=== PATIENT | male | born 1940 | race Caucasian/White ===

== ENCOUNTER 2017-08-16 17:30 | Outpatient (CLI) | payer MEDICARE, OTHER | END 2017-08-16 17:31 | disposition EMS.NT | LOC: EMS 17:30 | PROVIDERS: ATTEND Surgery | DX: R55 Syncope and collapse (principal) ==

== ENCOUNTER 2017-10-09 08:32 | Outpatient (CLI) | payer MEDICARE, OTHER ==
[2017-10-09] MEDS: FUROSEMIDE 40 MG/4 ML VIAL IVP SCH (09:20)
--- NOTE | 2017-10-10 11:00 | Nuclear Medicine Report ---
EXAM: RENOGRAM WITH LASIX EXAM DATE: 10/09/2017 01:57 PM. CLINICAL HISTORY: HYDRONEPHROSIS. COMPARISON: 07/04/2015 CT. TECHNIQUE: Adequate hydration status was ensured. Patient received the intravenous administration of 4.8 mCi Tc-99m MAG3. Immediate renal blood flow images were acquired for 2 minutes. Approximately 10 minutes into the study, the patient received an intravenous administration of 40 mg Lasix. Renal kady stefan images were acquired from the posterior projection for approximately 30 minutes. Postvoid images were acquired as well. FINDINGS: Renal Vascular Flow: Normal left renal flow. There is diminished flow to the right kidney. Renal Parenchymal Function: Time to peak left renal activity 9.5 minutes and right kidney 31.3 minute s. Drainage: Prompt post-Lasix left renal washout. There is increasing post-Lasix right renal collecting system activity. Postvoid Images: Residual left renal parenchymal and collecting system activity. Dilated right renal collecting system with persistent activity. Differential Function: Left Kidney = 76% Right Kidney = 24% IMPRESSION: 1. Obstructed right kidney demonstrating decreased function. 2. Split renal function left kidney 76% and right kidney 24%. [facility] Referring Provider Line: [phone] SITE ID: [id number]
== END 2017-10-09 08:33 | disposition home or self-care (01) ==
LOC: DI 08:32
PROVIDERS: ATTEND Urology
DX: N28.89 Other specified disorders of kidney and ureter (principal)
CPT/HCPCS: 78708; A9562

== ENCOUNTER 2018-01-10 08:42 | Outpatient (CLI) | payer MEDICARE, OTHER ==
[2018-01-10] MEDS: FUROSEMIDE 40 MG/4 ML VIAL IVP ONE (09:25)
--- NOTE | 2018-01-10 12:28 | Nuclear Medicine Report ---
EXAM: RENOGRAM WITH LASIX EXAM DATE: 01/10/2018 11:56 AM. CLINICAL HISTORY: Hydronephrosis, bladder Stone, ureteral Stone, gross. COMPARISON: 10/09/2017. TECHNIQUE: Adequate hydration status was ensured. Patient received the intravenous administration of 5.5 mCi Tc-99m MAG3. Immediate renal blood flow images were acquired for 2 minutes. Approximately 10 minutes into the study, the patient received an intravenous administration of 40 mg Lasix. Renal kady stefan images were acquired from the posterior projection for approximately 30 minutes. Postvoid images were acquired as well. FINDINGS: Renal Vascular Flow: There is poor vascular flow to the right kidney. Renal Parenchymal Function: There is essentially no function of the right kidney. Drainage: There is slow drainage of the left kidney initially. Post Lasix drainage half-time is appro ximately 8 minutes. Postvoid Images: There is very little if any activity in the right kidney. Mild retention of activity in the left renal collecting system. Differential Function: Left Kidney = 100% Right Kidney = 0% IMPRESSION: 1. Essentially nonfunctioning right kidney. 2. Dilated left renal collecting system without obstruction. [facility] Referring Provider Line: [phone] SITE ID: [id number]
== END 2018-01-10 08:43 | disposition home or self-care (01) ==
LOC: DI 08:42
PROVIDERS: ATTEND Urology
DX: N13.30 Unspecified hydronephrosis (principal); N21.0 Calculus in bladder; N20.1 Calculus of ureter; N32.0 Bladder-neck obstruction; Z87.442 Personal history of urinary calculi; R31.0 Gross hematuria; N28.9 Disorder of kidney and ureter, unspecified
CPT/HCPCS: 78708; A9562

== ENCOUNTER 2019-10-03 10:52 | Day surgery (SDC) | payer MEDICARE, OTHER ==
--- NOTE | 2019-10-03 12:13 | ANESTHESIA PROCEDURE NOTE ---
Diagnosis: vermin exterminator abx Procedure: Mid line placement Height and Weight: Height 6 ft Body Mass Index 28.8 Allergies Sulfa (Sulfonamide Antibiotics) Allergy (Verified 09/24/15 19:18) Unknown Iodinated Contrast Media [Iodinated Contrast Media - IV Dye] Adverse Reaction (Unverified 07/04/15 09:56) Hives Pt states of having reaction 5 years ago during angiogram procedure in [facility]. Having hives and severe itching occurred. ASA classification: 3-Severe systemic disease Is this case an emergency?: No Anesth Central Line Template - Central Line Central Line Preparation: Consent Obtained Central line type: Other (double lumen picc) Central line catheter tip site resides: picc tip in subclavian vein Central line aftercare: Secured, Placement confirmed, No pneumothorax, No complications, Bundle checklist complete, Pt tolerated well, Other (we will wait for rediographic confirmation. picc catheter was cut beyond the "no trim zone" area. 30 cm in and zero cm at skin)
--- NOTE | 2019-10-03 12:21 | PROCEDURE REPORT ---
Hospitalist Procedure Note - Procedure Note Procedure Note: this patient has an order for a midline placement. This is an outpatient requiring antibiotics. We placed a mid line using US guidance. Picc line catheter was cut beyond "no trim zone" which is at 30 cm. US guidance used for insertion. Skin cleaned with chlorohexidine and sterile prep and draping used. Patient laid supine. Lidocain for skin LA used. 5 turkish double lumen high pressure catheter used. 30 cm in and zero cm exposed. Secured with stat lock and a tegaderm. Luer lock caps attached. Both lumen flushed and aspirated blood with ease. Patient tolerated the procedure well. We confirmed the placement with a portable chest x ray, but we will still look forward to radiology confirmation.
--- NOTE | 2019-10-03 12:33 | XRAY Report ---
Reason: new PICC @R basilic v. Procedure Date: 10/03/2019 Accession Number: [id number] / [id number] Procedure: XR - Chest for Line Placement CPT Code: Final Report FULL RESULT: EXAM: CHEST RADIOGRAPHY EXAM DATE: 10/03/2019 12:10 PM. CLINICAL HISTORY: New PICC at right basilic vein. COMPARISON: None. TECHNIQUE: 1 view. FINDINGS: Lungs/Pleura: No focal opacities evident. No pleural effusion. No pneumothorax. Mediastinum: Within exam limitations, the cardiomediastinal contour is normal. Other: Right arm PICC terminates with tip at confluence of subclavian and IJ veins. IMPRESSION: Tip of central venous catheter as described. This positioning is likely acceptable for non-caustic medications such as antibiotics. Recommendation: Position of catheter tip is functionally similar to a midline but formally in a central vein. For TPN or chemotherapy, would reposition more centrally. [facility]
== END 2019-10-03 10:53 | disposition home or self-care (01) ==
LOC: SDS 10:52
PROVIDERS: ATTEND Nurse Anesthetist, Certified Registered
PROC: 05H533Z Insertion of Infusion Device into Right Subclavian Vein, Percutaneous Approach (ICD-10-PCS; 2019-10-03)
PROC: 0JHD3WZ Insertion of Totally Implantable Vascular Access Device into Right Upper Arm Subcutaneous Tissue and Fascia, Percutaneous Approach (ICD-10-PCS; principal; 2019-10-03 11:30)
DX: N39.0 Urinary tract infection, site not specified (principal)
CPT/HCPCS: 36569; C1751; 71045

== ENCOUNTER 2020-08-07 15:37 | Emergency (ER) | payer MEDICARE, OTHER ==
--- NOTE | 2020-08-07 16:17 | ED Physician Documentation ---
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 He gets occasional issues with urinary obstruction and on rare occasions self caths at home with a coud. Last time he had to do that was exactly 100 days ago. He has not been able to urinate since this morning and has severe suprapubic pain and pain in the left flank which is where his residual kidney is. Review of Systems Ten Systems: 10 systems reviewed and negative Constitutional: denies: Fever, Chills Cardiac: reports: Reviewed and negative Respiratory: reports: Reviewed and negative PD PAST MEDICAL HISTORY - Past Medical History Cardiovascular: Atrial fibrillation Respiratory: None, Other Endocrine/Autoimmune: None GI: None : Frequency, Kidney stones HEENT: Macular degeneration Psych: None Musculoskeletal: None Derm: None - Past Surgical History Past Surgical History: Yes HEENT: Tonsil/Adenoidectomy Derm: Skin cancer surgery - Present Medications Home Medications: Ambulatory Orders Medication Instructions Recorded Confirmed Allopurinol [Zyloprim] 300 mg PO DAILY 08/07/20 08/07/20 dilTIAZem HCL [Diltiazem 24Hr ER 240 mg PO DAILY 08/07/20 08/07/20 (Xr)] - Allergies Allergies/Adverse Reactions: Allergies Allergy/AdvReac Type Severity Reaction Status Date / Time Sulfa (Sulfonamide Allergy Unknown Verified 08/07/20 15:56 Antibiotics) Iodinated Contrast Media AdvReac Hives Verified 08/07/20 15:56 [Iodinated Contrast Media - IV Dye] - Social History Does the pt smoke?: Yes Smoking Status: Former smoker Does the pt drink ETOH?: Yes Does the pt have substance abuse?: No - Immunizations Immunizations are current?: Yes - POLST Patient has POLST: No PD ED PE NORMAL - Vitals Vital signs reviewed: Yes - General General: Alert and oriented X 3, Other (He appears uncomfortable) - Abdomen Abdomen: Other (Firm distended bladder with some tenderness) - Back Back: No CVA TTP, No spinal TTP - Derm Derm: Normal color, Warm and dry - Extremities Extremities: No edema, No calf tenderness / cord - Neuro Neuro: Alert and oriented X 3, Normal speech Results - Vitals Vitals: Vital Signs - 24 hr 08/07/20 08/07/20 08/07/20 15:52 17:58 19:31 Temperature 37.1 C 36.9 C 36.7 C Heart Rate 96 84 79 Respiratory 16 18 16 Rate Blood Pressure 139/95 H 144/81 H 122/65 O2 Saturation 97 85 L 96 08/07/20 08/07/20 20:29 21:38 Temperature 37.0 C 37.1 C Heart Rate 75 78 Respiratory 16 18 Rate Blood Pressure 134/82 H 142/80 H O2 Saturation 96 96 Oxygen O2 Source Room air - Labs Labs: Laboratory Tests 08/07/20 08/07/20 08/07/20 16:45 16:52 17:02 WBC 16.4 H RBC 4.42 L Hgb 13.2 L Hct 40.2 L MCV 91.0 MCH 29.9 MCHC 32.8 RDW 16.1 H Plt Count 339 MPV 10.0 Neut # (Auto) 14.7 H Lymph # (Auto) 0.7 L [place] # (Auto) 0.8 Eos # (Auto) 0.0 Baso # (Auto) 0.1 Absolute Nucleated RBC 0.00 Nucleated RBC % 0.0 Sodium 139 Potassium 4.6 Chloride 100 L Carbon Dioxide 22 Anion Gap 17.0 H BUN 42 H Creatinine 2.5 H Estimated GFR (MDRD) 25 L Glucose 115 H Lactic Acid Calcium 9.4 Prostate Specific Ag Urine Color YELLOW Urine Clarity CLOUDY Urine pH 7.0 Ur Specific [place] 1.020 Urine Protein 100 H Urine Glucose (UA) NEGATIVE Urine Ketones NEGATIVE Urine Occult Blood LARGE H Urine Nitrite NEGATIVE Urine Bilirubin NEGATIVE Urine Urobilinogen 0.2 (NORMAL) Ur Leukocyte Esterase LARGE H Urine RBC Y Urine WBC >25 H Ur Squamous Epith Cells NONE SEEN Urine Bacteria Many H Ur Microscopic Review INDICATED Urine Culture Comments INDICATED Nasal Adenovirus (PCR) Nasal B. parapertussis DNA (PCR) Nasal Coronavir 229E PCR Nasal Coronavir HKU1 PCR Nasal Coronavir NL63 PCR Nasal Coronavir OC43 PCR Nasal Enterovir/Rhinovir PCR Nasal Influenza B PCR Nasal Influenza A PCR Nasal Parainfluen 1 PCR Nasal Parainfluen 2 PCR Nasal Parainfluen 3 PCR Nasal Parainfluen 4 PCR Nasal RSV (PCR) Nasal B.pertussis DNA PCR Nasal C.pneumoniae (PCR) Wilder Human Metapneumo PCR Nasal M.pneumoniae (PCR) Nasal SARS-CoV-2 (PCR) 08/07/20 08/07/20 08/07/20 17:02 17:52 20:35 WBC RBC Hgb Hct MCV MCH MCHC RDW Plt Count MPV Neut # (Auto) Lymph # (Auto) [place] # (Auto) Eos # (Auto) Baso # (Auto) Absolute Nucleated RBC Nucleated RBC % Sodium Potassium Chloride Carbon Dioxide Anion Gap BUN Creatinine Estimated GFR (MDRD) Glucose Lactic Acid 1.7 Calcium Prostate Specific Ag 0.069 Urine Color Urine Clarity Urine pH Ur Specific [place] Urine Protein Urine Glucose (UA) Urine Ketones Urine Occult Blood Urine Nitrite Urine Bilirubin Urine Urobilinogen Ur Leukocyte Esterase Urine RBC Urine WBC Ur Squamous Epith Cells Urine Bacteria Ur Microscopic Review Urine Culture Comments Nasal Adenovirus (PCR) NOT DETECTED Nasal B. parapertussis DNA (PCR) NOT DETECTED Nasal Coronavir 229E PCR NOT DETECTED Nasal Coronavir HKU1 PCR NOT DETECTED Nasal Coronavir NL63 PCR NOT DETECTED Nasal Coronavir OC43 PCR NOT DETECTED Nasal Enterovir/Rhinovir PCR NOT DETECTED Nasal Influenza B PCR NOT DETECTED Nasal Influenza A PCR NOT DETECTED Nasal Parainfluen 1 PCR NOT DETECTED Nasal Parainfluen 2 PCR NOT DETECTED Nasal Parainfluen 3 PCR NOT DETECTED Nasal Parainfluen 4 PCR NOT DETECTED Nasal RSV (PCR) NOT DETECTED Nasal B.pertussis DNA PCR NOT DETECTED Nasal C.pneumoniae (PCR) NOT DETECTED Wilder Human Metapneumo PCR NOT DETECTED Nasal M.pneumoniae (PCR) NOT DETECTED Nasal SARS-CoV-2 (PCR) NOT DETECTED Procedures - General procedure General procedure: I initially saw the patient at the bedside and tried to place a regular 16 Niuean Aguilar, this was unsuccessful, this was followed by a 16 [place] coud, also unsuccessful. [place] like it was getting almost to the bladder and then hitting a hard very resistance. PD MEDICAL DECISION MAKING - ED course ED course: I was unable to place a Aguilar, subsequently was reported that his bladder scan was only in the 250 mL range. That said his symptoms seemed out of proportion to that especially in light of his worsening renal function. Bedside ultrasound was done by me and suggested much more significant urinary retention and one of the more seasons nurses also tried to place a Aguilar and what is unable. Given his borderline tachycardia and white count he technically does fit criteria for urosepsis. Sepsis time of onset was 1730 based on results of urinalysis timing. Blood cultures and Rocephin were ordered. Called [facility] for transfer to [place] where he gets his urologic care at approximately 1804. I spoke with his by phone [phone] After some delays I did get a hold of Dr. Nichols, the on-call urologist with [facility]. All of the hospitals in their hospital system are quite overwhelmed right now and he requested that we give it another try with the Aguilar with a smaller coud. Initial tries were with a 16 Niuean. He recommended a 12 Niuean coud. We are looking for 1. Subsequently we found that the 16 Niuean coud is the smallest we have in the hospital. I tried catheterizing him again with both a 12 Niuean and a 10 Niuean Aguilar, there was no success. Subsequently was accepted to [facility] ED by Dr. Corey Fisher at approximately 10 PM and cobras were completed. He is stable for transport for specialty care. - Sepsis Event Current Stage of Sepsis: Sepsis Possible source of Sepsis: Genitourinary Mental/Cognitive Status: Alert/Oriented X3, Normal for patient Reason for not giving 30ml/kg crystalloid fluids: Other (not in shock) Peripheral Pulse Strength: 3+ Normal Peripheral Pulse Location: Radial Bedside ultrasound performed: No Sepsis Comment: He is just barely into septic criteria with a heart rate of 96 and leukocytosis with known source, urinary. Departure - Departure Disposition: 02 Transfer Acute Care Hosp Clinical Impression: Urinary retention, NANDO (acute kidney injury) Urinary tract infection Qualifiers: Urinary tract infection type: acute pyelonephritis Qualified Code(s): N10 - Acute pyelonephritis Sepsis Qualifiers: Sepsis type: sepsis due to unspecified organism Sepsis acute organ dysfunction status: with acute organ dysfunction Severe sepsis acute organ dysfunction type: acute renal failure Acute renal failure type: unspecified Severe sepsis shock status: without septic shock Qualified Code(s): A41.9 - Sepsis, unspecified organism Condition: Stable
[2020-08-07] MEDS ORDERED: oxyCODONE 5 MG TABLET PO STA (16:37)
[2020-08-07 17:00] LABS: BILIRUBIN,URINE NEGATIVE (NEGATIVE); GLUCOSE, URINE (UA) NEGATIVE (NEGATIVE); KETONES,URINE (UA) NEGATIVE (NEGATIVE); LEUKOCYTE ESTERASE, URINE LARGE (NEGATIVE); NITRITE,URINE NEGATIVE (NEGATIVE); OCCULT BLOOD,URINE LARGE (NEGATIVE); PROTEIN,URINE 100 mg/dL (NEGATIVE); UROBILINOGEN,URINE 0.2 (NORMAL) E.U./dL (NORMAL)
[2020-08-07 17:09] LABS: BASOPHILS # (AUTO) 0.1 10^3/uL (0.0-0.1); BASOPHILS % (AUTO) 0.5 %; EOSINOPHILS % (AUTO) 0.2 %; HGB - HEMOGLOBIN 13.2 g/dL (14.0-18.0); LYMPHOCYTES # (AUTO) 0.7 10^3/uL (1.5-3.5); LYMPHOCYTES % (AUTO) 4.5 %; MEAN CORPUSCULAR HEMOGLOBIN 29.9 pg (27.0-31.0); MEAN CORPUSCULAR HGB CONC 32.8 g/dL (32.0-36.0); MONOCYTES # (AUTO) 0.8 10^3/uL (0.0-1.0); MONOCYTES % (AUTO) 4.9 %; NEUTROPHILS # (AUTO) 14.7 10^3/uL (1.5-6.6); NEUTROPHILS % (AUTO) 89.4 %; PLT - PLATELET COUNT 339 10^3/uL (130-450); RED BLOOD COUNT 4.42 10^6/uL (4.70-6.10); RED CELL DISTRIBUTION WIDTH 16.1 % (12.0-15.0); WHITE BLOOD COUNT 16.4 x10^3/uL (4.8-10.8)
[2020-08-07 17:09] LABS: CLARITY,URINE CLOUDY (CLEAR)
[2020-08-07 17:14] LABS: BACTERIA,URINE Many /HPF (None Seen); RBC,URINE Y /HPF (0-5); SQUAMOUS EPITHELIAL CELL,UR NONE SEEN (<= Few)
[2020-08-07 17:17] LABS: CALCIUM 9.4 mg/dL (8.5-10.3); CREATININE 2.5 mg/dL (0.6-1.2)
[2020-08-07] MEDS ORDERED: cefTRIAXone 1 GM in SODIUM CHLORIDE 0.9% MINIBAG 100 ML IV STA (17:32)
[2020-08-07 21:25] LABS: C. PNEUMONIAE- RESP PCR PANEL NOT DETECTED
[2020-08-07 23:14] VITALS: BP 132/75
== END 2020-08-07 23:14 | disposition short-term general hospital (02) ==
LOC: ED 15:37
DX: R33.9 Retention of urine, unspecified (principal); A41.9 Sepsis, unspecified organism; N17.9 Acute kidney failure, unspecified; R65.20 Severe sepsis without septic shock; N10 Acute pyelonephritis; Z20.828 Contact with and (suspected) exposure to other viral communicable diseases; Z53.09 Procedure and treatment not carried out because of other contraindication; Z90.5 Acquired absence of kidney; Z85.46 Personal history of malignant neoplasm of prostate; Z87.891 Personal history of nicotine dependence
CPT/HCPCS: 36415; 51702; 80048; 81001; 83605; 84153; 85025; 87040; 87077; 87086; 87181; 87631; 96365; 99284; 99285; A9270; 0202U; 81003; 81599

== ENCOUNTER 2020-08-07 23:14 | Outpatient (CLI) | payer MEDICARE, OTHER | END 2020-08-07 23:15 | disposition short-term general hospital (02) | LOC: EMS 23:14 | PROVIDERS: ATTEND Surgery | DX: R33.9 Retention of urine, unspecified (principal); N17.9 Acute kidney failure, unspecified | CPT/HCPCS: A0425; A0428 ==

== ENCOUNTER 2020-08-30 04:46 | Outpatient (CLI) | payer MEDICARE, OTHER | END 2020-08-30 04:47 | disposition critical access hospital (66) | LOC: EMS 04:46 | PROVIDERS: ATTEND Surgery | DX: R33.9 Retention of urine, unspecified (principal) | CPT/HCPCS: A0425; A0427 ==

== ENCOUNTER 2020-08-30 05:27 | Emergency (ER) | payer MEDICARE, OTHER ==
--- NOTE | 2020-08-30 06:28 | ED Physician Documentation ---
History of Present Illness - Stated complaint Stated Complaint: CANNOT URINATE - Chief complaint Chief Complaint: UTI - History obtained from History obtained from: Patient - Additonal information Additional information: Patient comes emergency department complaining of urinary retention and since early afternoon yesterday. Patient has a longstanding history of intermittent urinary retention, secondary to treatment for prostate cancer with subsequent radiation and scarring. The patient is followed by urology and self caths at home when he cannot urinate spontaneously. However, patient states he could not pass the catheter and so after waiting throughout the night, he decided to come here. No fevers or chills. No dysuria prior to the retention. No abdominal pain prior to buildup of urine in his bladder. No other complaints at this time. Review of Systems Ten Systems: 10 systems reviewed and negative Constitutional: reports: Reviewed and negative Eyes: reports: Reviewed and negative Ears: reports: Reviewed and negative Nose: reports: Reviewed and negative Throat: reports: Reviewed and negative Cardiac: reports: Reviewed and negative Respiratory: reports: Reviewed and negative GI: reports: Abdominal Pain : reports: Unable to Void Skin: reports: Reviewed and negative Musculoskeletal: reports: Reviewed and negative Neurologic: reports: Reviewed and negative Psychiatric: reports: Reviewed and negative Endocrine: reports: Reviewed and negative Immunocompromised: reports: Reviewed and negative PD PAST MEDICAL HISTORY - Past Medical History Past Medical History: Yes Cardiovascular: Atrial fibrillation Respiratory: None, Other Endocrine/Autoimmune: None GI: None : Frequency, Kidney stones HEENT: Macular degeneration Psych: None Musculoskeletal: None Derm: None - Past Surgical History Past Surgical History: Yes HEENT: Tonsil/Adenoidectomy Derm: Skin cancer surgery - Present Medications Home Medications: Ambulatory Orders Medication Instructions Recorded Confirmed Allopurinol [Zyloprim] 300 mg PO DAILY 08/07/20 08/30/20 dilTIAZem HCL [Diltiazem 24Hr ER 240 mg PO DAILY 08/07/20 08/30/20 (Xr)] - Allergies Allergies/Adverse Reactions: Allergies Allergy/AdvReac Type Severity Reaction Status Date / Time Sulfa (Sulfonamide Allergy Unknown Verified 08/30/20 05:31 Antibiotics) Iodinated Contrast Media AdvReac Hives Verified 08/30/20 05:31 [Iodinated Contrast Media - IV Dye] - Social History Does the pt smoke?: Yes Smoking Status: Current every day smoker Does the pt drink ETOH?: Yes Does the pt have substance abuse?: No - Immunizations Immunizations are current?: Yes - POLST Patient has POLST: No PD ED PE NORMAL - Vitals Vital signs reviewed: Yes - General General: Alert and oriented X 3, No acute distress - HEENT HEENT: Atraumatic, PERRL, EOMI, Moist mucous membranes - Neck Neck: Supple, no meningeal sign - Cardiac Cardiac: RRR, No murmur - Respiratory Respiratory: No respiratory distress, Clear bilaterally - Abdomen Abdomen: Soft, Other (Moderate distention with tenderness over patient's bladder.) - Derm Derm: Warm and dry - Extremities Extremities: No deformity - Neuro Neuro: Alert and oriented X 3 - Psych Psych: Normal mood, Normal affect Results - Vitals Vitals: Vital Signs - 24 hr 08/30/20 08/30/20 08/30/20 05:31 05:34 06:36 Temperature 37.2 C 37.2 C 37.2 C Heart Rate 81 81 66 Respiratory 16 16 16 Rate Blood Pressure 165/107 H 165/103 H 125/66 O2 Saturation 96 97 99 Oxygen O2 Source Room air PD MEDICAL DECISION MAKING - ED course Complexity details: considered differential, d/w patient ED course: Patient was catheterized in the emergency department with output of 1400 cc of urine. The patient was found to be feeling much better and had no other acute issues and I feel he was stable for discharge home. We have discussed home management of the symptoms, as well as the usual indications for return. Departure - Departure Disposition: 01 Home, Self Care Clinical Impression: Urinary retention Condition: Stable Instructions: ED Retention Urinary Male
[2020-08-30 06:49] VITALS: BP 125/66
== END 2020-08-30 06:40 | disposition home or self-care (01) ==
LOC: EDBD → EDUNIT# → ED 05:27 → SUPCPDRO 05:27 → ED 06:40
DX: R33.9 Retention of urine, unspecified (principal); Z85.46 Personal history of malignant neoplasm of prostate; Z92.3 Personal history of irradiation; F17.200 Nicotine dependence, unspecified, uncomplicated
CPT/HCPCS: 51701; 99283

== ENCOUNTER 2020-08-31 18:11 | Outpatient (CLI) | payer MEDICARE, OTHER | END 2020-08-31 18:12 | disposition critical access hospital (66) | LOC: EMS 18:11 | PROVIDERS: ATTEND Surgery | DX: N48.89 Other specified disorders of penis (principal) | CPT/HCPCS: A0425; A0427 ==

== ENCOUNTER 2020-08-31 18:50 | Emergency (ER) | payer MEDICARE, OTHER ==
[2020-08-31] MEDS ORDERED: LIDOCAINE 2% URO-JET 5 ML SYRINGE UR STA (19:11)
--- NOTE | 2020-08-31 19:22 | ED Physician Documentation ---
History of Present Illness - Stated complaint Stated Complaint: CATH ISSUE - Chief complaint Chief Complaint: General - History obtained from History obtained from: Patient - History of Present Illness Timing: Today Pain level max: 0 Pain level now: 0 - Additonal information Additional information: 80-year-old male with a history of prostate cancer and subsequent radiation presents to the emergency department after self catheterizing at home causing a significant amount of bleeding. Patient and EMS state about 1/4 cup of blood. He has been unable to urinate today. Was catheterized in the emergency department yesterday. Nothing makes it better or worse. No abdominal pain. No fever. Patient has a longstanding history of genitourinary issues. He has had several prostate surgeries, several bladder surgeries. Has severe scarring from radiation to his prostate. He states that the scarring in his bladder causes the balloons on Aguilar catheters to break. He is followed at the [facility] by Dr. Sanches. Review of Systems Ten Systems: 10 systems reviewed and negative Constitutional: denies: Fever, Chills Ears: denies: Ear pain Nose: denies: Rhinorrhea / runny nose, Congestion Respiratory: denies: Cough GI: denies: Vomiting, Diarrhea Skin: denies: Rash Musculoskeletal: denies: Neck pain, Back pain Neurologic: denies: Headache PD PAST MEDICAL HISTORY - Past Medical History Cardiovascular: Atrial fibrillation Respiratory: None, Other Endocrine/Autoimmune: None GI: None : Frequency, Kidney stones HEENT: Macular degeneration Psych: None Musculoskeletal: None Derm: None - Past Surgical History Past Surgical History: Yes HEENT: Tonsil/Adenoidectomy Derm: Skin cancer surgery - Present Medications Home Medications: Ambulatory Orders Medication Instructions Recorded Confirmed Allopurinol [Zyloprim] 300 mg PO DAILY 08/07/20 08/30/20 dilTIAZem HCL [Diltiazem 24Hr ER 240 mg PO DAILY 08/07/20 08/30/20 (Xr)] - Allergies Allergies/Adverse Reactions: Allergies Allergy/AdvReac Type Severity Reaction Status Date / Time Sulfa (Sulfonamide Allergy Unknown Verified 08/31/20 18:59 Antibiotics) Iodinated Contrast Media AdvReac Hives Verified 08/31/20 18:59 [Iodinated Contrast Media - IV Dye] - Social History Does the pt smoke?: Yes Smoking Status: Current every day smoker Does the pt drink ETOH?: Yes Does the pt have substance abuse?: No - Immunizations Immunizations are current?: Yes - POLST Patient has POLST: No PD ED PE NORMAL - Vitals Vital signs reviewed: Yes - General General: Alert and oriented X 3, Well developed/nourished, Other (Appears uncomfortable) - HEENT HEENT: Moist mucous membranes - Neck Neck: Supple, no meningeal sign - Cardiac Cardiac: RRR - Respiratory Respiratory: No respiratory distress, Clear bilaterally - Abdomen Abdomen: Soft, Non distended, Other (Distended lower abdomen.) - Male Male : Other (Blood at the urethral meatus) - Derm Derm: Warm and dry - Extremities Extremities: No edema - Neuro Neuro: Alert and oriented X 3 Results - Vitals Vitals: Vital Signs - 24 hr 08/31/20 08/31/20 08/31/20 19:00 21:00 21:08 Temperature 36.7 C 36.8 C Heart Rate 66 64 62 Respiratory 18 12 16 Rate Blood Pressure 145/80 H 129/81 H 129/81 H O2 Saturation 97 97 97 Oxygen O2 Source Nasal cannula - Labs Labs: Laboratory Tests 08/31/20 08/31/20 21:01 21:01 WBC 10.8 RBC 3.97 L Hgb 11.8 L Hct 36.3 L MCV 91.4 MCH 29.7 MCHC 32.5 RDW 16.2 H Plt Count 337 MPV 9.4 Neut # (Auto) 7.4 H Lymph # (Auto) 2.1 [place] # (Auto) 0.9 Eos # (Auto) 0.3 Baso # (Auto) 0.1 Absolute Nucleated RBC 0.00 Nucleated RBC % 0.0 Sodium 136 Potassium 4.0 Chloride 104 Carbon Dioxide 24 Anion Gap 8.0 BUN 35 H Creatinine 2.5 H Estimated GFR (MDRD) 25 L Glucose 109 H Calcium 8.8 PD MEDICAL DECISION MAKING - ED course Complexity details: reviewed results, re-evaluated patient, considered differential, d/w patient, d/w webmethods consultant ED course: The nurse and I attempted several times to place the catheter in the emergency department without success. A 16 [place] coud, 14 [place] coud, 16 [place] silicone and 14 [place] Aguilar catheter were all attempted without success. Urology is not available here. A called the [facility] for transfer at approximately 8 PM. A callback was received at approximately 930, spoke with the transfer center. At 10:30 PM, I spoke with Dr. Hilliard urology who does recommend transfer to the emergency department, however he is not with Dr. Sanches's group and recommends that we contact Dr. Sanches's group for transfer. Transfer center will recontact once they have spoke with Dr. Goddard's group. Transfer center was informed at 1030PM that the last ferry is likely at 11:30 PM. 2300, the patient was accepted to the [facility] emergency department by Dr. Sanches [email or web address]. COBRA forms completed. This document was made in part using voice recognition software. While efforts are made to proofread this document, sound alike and grammatical errors may occur. Departure - Departure Disposition: 02 Transfer Acute Care Hosp Clinical Impression: Urinary retention Condition: Stable
[2020-08-31] MEDS ORDERED: HYDROmorphone 1 MG/ML CARPUJECT IM STA (20:04)
[2020-08-31] MEDS ORDERED: HYDROmorphone 1 MG/ML CARPUJECT ONE (20:13)
[2020-08-31] MEDS ORDERED: HYDROmorphone 1 MG/ML CARPUJECT IVP STA ×3 (20:15→23:19)
[2020-08-31 21:07] LABS: BASOPHILS # (AUTO) 0.1 10^3/uL (0.0-0.1); BASOPHILS % (AUTO) 0.7 %; EOSINOPHILS # (AUTO) 0.3 10^3/uL (0.0-0.7); HGB - HEMOGLOBIN 11.8 g/dL (14.0-18.0); LYMPHOCYTES # (AUTO) 2.1 10^3/uL (1.5-3.5); LYMPHOCYTES % (AUTO) 19.2 %; MEAN CORPUSCULAR HEMOGLOBIN 29.7 pg (27.0-31.0); MEAN CORPUSCULAR HGB CONC 32.5 g/dL (32.0-36.0); MEAN CORPUSCULAR VOLUME 91.4 fL (80.0-94.0); MEAN PLATELET VOLUME 9.4 fL (7.4-11.4); MONOCYTES # (AUTO) 0.9 10^3/uL (0.0-1.0); MONOCYTES % (AUTO) 8.3 %; NEUTROPHILS # (AUTO) 7.4 10^3/uL (1.5-6.6); NEUTROPHILS % (AUTO) 68.5 %; PLT - PLATELET COUNT 337 10^3/uL (130-450); RED BLOOD COUNT 3.97 10^6/uL (4.70-6.10); RED CELL DISTRIBUTION WIDTH 16.2 % (12.0-15.0); WHITE BLOOD COUNT 10.8 x10^3/uL (4.8-10.8)
[2020-08-31 21:16] LABS: CALCIUM 8.8 mg/dL (8.5-10.3); CREATININE 2.5 mg/dL (0.6-1.2)
[2020-08-31 23:39] VITALS: BP 131/100
[2020-09-01] MEDS ORDERED: HYDROmorphone 1 MG/ML CARPUJECT IVP STA (00:04)
[2020-09-01 00:32] LABS: C. PNEUMONIAE- RESP PCR PANEL NOT DETECTED
== END 2020-09-01 00:50 | disposition short-term general hospital (02) ==
LOC: EDUNIT# → ED 18:50
DX: R33.9 Retention of urine, unspecified (principal); F17.200 Nicotine dependence, unspecified, uncomplicated
CPT/HCPCS: 36415; 51702; 80048; 85025; 87631; 96374; 96376; 99285; J1170; 0202U

== ENCOUNTER 2020-09-01 00:56 | Outpatient (CLI) | payer MEDICARE, OTHER | END 2020-09-01 00:57 | disposition short-term general hospital (02) | LOC: EMS 00:56 | PROVIDERS: ATTEND Surgery | DX: R33.9 Retention of urine, unspecified (principal) | CPT/HCPCS: A0425; A0426 ==

== ENCOUNTER 2020-09-07 | Emergency (ER) | payer MEDICARE, OTHER ==
--- NOTE | 2020-09-07 18:34 | ED Physician Documentation ---
History of Present Illness - Stated complaint Stated Complaint: MALE - Chief complaint Chief Complaint: General - History obtained from History obtained from: Patient - Additonal information Additional information: He has a lot of scar tissue on the bladder, he has a Aguilar in place. He is difficult for Aguilar placement. I had to send him down to [place] for urology consultation for same early last month. His catheter came out just prior to arrival and needs it replaced. He is seeing urology at [facility] in 2 days. Review of Systems Constitutional: denies: Fever, Chills Cardiac: reports: Reviewed and negative Respiratory: reports: Reviewed and negative PD PAST MEDICAL HISTORY - Past Medical History Cardiovascular: Atrial fibrillation Respiratory: None, Other Endocrine/Autoimmune: None GI: None : Frequency, Kidney stones HEENT: Macular degeneration Psych: None Musculoskeletal: None Derm: None - Past Surgical History Past Surgical History: Yes HEENT: Tonsil/Adenoidectomy Derm: Skin cancer surgery - Present Medications Home Medications: Ambulatory Orders Medication Instructions Recorded Confirmed Allopurinol [Zyloprim] 300 mg PO DAILY 08/07/20 08/30/20 dilTIAZem HCL [Diltiazem 24Hr ER 240 mg PO DAILY 08/07/20 08/30/20 (Xr)] - Allergies Allergies/Adverse Reactions: Allergies Allergy/AdvReac Type Severity Reaction Status Date / Time Sulfa (Sulfonamide Allergy Unknown Verified 09/07/20 18:01 Antibiotics) Iodinated Contrast Media AdvReac Hives Verified 09/07/20 18:01 [Iodinated Contrast Media - IV Dye] - Social History Does the pt smoke?: Yes Smoking Status: Current every day smoker Does the pt drink ETOH?: Yes Does the pt have substance abuse?: No - Immunizations Immunizations are current?: Yes - POLST Patient has POLST: No PD ED PE NORMAL - Vitals Vital signs reviewed: Yes - General General: Alert and oriented X 3, No acute distress - Neuro Neuro: Alert and oriented X 3, Normal speech - Psych Psych: Normal mood, Normal affect Results - Vitals Vitals: Vital Signs - 24 hr 09/07/20 18:01 Temperature 36.5 C Heart Rate 82 Respiratory 16 Rate Blood Pressure 169/95 H O2 Saturation 97 Oxygen O2 Source Room air Procedures - General procedure General procedure: I personally placed a Aguilar catheter after iodine prep, we used the small coud he had with him and it went in much easier than last time. It was successful and secured in place. Departure - Departure Disposition: Home, Self Care Clinical Impression: Urinary retention Condition: Good Record reviewed to determine appropriate education?: Yes Instructions: ED Catheter Care Aguilar Comments: Follow-up with the urologist as scheduled on Monday. Return as needed.
== END 2020-09-07 19:04 | disposition home or self-care (01) ==
CPT/HCPCS: 51702; 99283

== ENCOUNTER 2020-10-14 16:26 | Outpatient (CLI) | payer MEDICARE, OTHER | END 2020-10-14 16:27 | disposition critical access hospital (66) | LOC: EMS 16:26 | PROVIDERS: ATTEND Emergency Medicine | DX: M25.552 Pain in left hip (principal) | CPT/HCPCS: A0425; A0429 ==

== ENCOUNTER 2020-10-14 17:07 | Emergency (ER) | payer MEDICARE, OTHER ==
[2020-10-14] MEDS ORDERED: KETOROLAC 30 MG/ML VIAL IVP STA (18:14)
[2020-10-14] MEDS ORDERED: SODIUM CHLORIDE 0.9% 1,000 ML IV STA (18:14)
[2020-10-14] MEDS ORDERED: HYDROmorphone 1 MG/ML CARPUJECT IVP STA (18:15)
[2020-10-14 18:21] LABS: BASOPHILS % (AUTO) 0.2 %; EOSINOPHILS % (AUTO) 0.1 %; HGB - HEMOGLOBIN 12.5 g/dL (14.0-18.0); LYMPHOCYTES # (AUTO) 1.1 10^3/uL (1.5-3.5); LYMPHOCYTES % (AUTO) 5.7 %; MEAN CORPUSCULAR HEMOGLOBIN 29.8 pg (27.0-31.0); MEAN CORPUSCULAR HGB CONC 32.7 g/dL (32.0-36.0); MEAN PLATELET VOLUME 9.9 fL (7.4-11.4); MONOCYTES # (AUTO) 1.7 10^3/uL (0.0-1.0); MONOCYTES % (AUTO) 9.3 %; NEUTROPHILS # (AUTO) 15.8 10^3/uL (1.5-6.6); NEUTROPHILS % (AUTO) 84.1 %; PLT - PLATELET COUNT 306 10^3/uL (130-450); RED CELL DISTRIBUTION WIDTH 16.6 % (12.0-15.0); WHITE BLOOD COUNT 18.8 x10^3/uL (4.8-10.8)
[2020-10-14 18:27] LABS: ALBUMIN 3.3 g/dL (3.2-5.5); ALBUMIN/GLOBULIN RATIO 0.9 (1.0-2.2); BILIRUBIN,TOTAL 0.7 mg/dL (0.2-1.0); CALCIUM 9.4 mg/dL (8.5-10.3); TOTAL PROTEIN 7.1 g/dL (6.7-8.2)
[2020-10-14 18:40] LABS: PLATELET ESTIMATE, MANUAL NORMAL (130-450,000) (NORMAL); PLATELET MORPHOLOGY NORMAL APPEARANCE (NORMAL); RBC MORPHOLOGY (MULTIPLE) NORMAL APPEARANCE (NORMAL)
--- NOTE | 2020-10-14 19:02 | ED Physician Documentation ---
History of Present Illness - Stated complaint Stated Complaint: HIP PX - Chief complaint Chief Complaint: Trauma Ext - History obtained from History obtained from: Patient - Additonal information Additional information: Patient comes emergency department chief complaint of left lower back pain. He states that has been going on for about 3 days and is not really sure what started it. He states that it made it been that he sat in a recliner for several hours on the first day of symptoms and the recliner did not have very good support for his back. Patient states that the pain began after this and has gotten steadily worse over the last few days. Patient states that he feels in his left buttock and that it shoots down into his left leg. He denies any numbness or tingling. He has a suprapubic catheter because of extensive scar tissue following treatment for prostate cancer. He just had the suprapubic initially placed on September 09, and has had his catheter replaced in the last few days. He states that a couple days before that, he did notice some chills and a little bit of disorientation. He states he woke up the next morning and felt much better. He denies nausea or vomiting. No abdominal pain. No other complaints at this time. He has been producing good amounts of urine. Review of Systems Ten Systems: 10 systems reviewed and negative Constitutional: reports: Fever (In triage), Chills Eyes: reports: Reviewed and negative Ears: reports: Reviewed and negative Nose: reports: Reviewed and negative. denies: Rhinorrhea / runny nose Throat: reports: Reviewed and negative Cardiac: reports: Reviewed and negative Respiratory: reports: Reviewed and negative. denies: Cough GI: reports: Reviewed and negative. denies: Abdominal Pain, Nausea : reports: Reviewed and negative Skin: reports: Reviewed and negative Musculoskeletal: reports: Back pain Neurologic: reports: Reviewed and negative. denies: Focal weakness Psychiatric: reports: Reviewed and negative Endocrine: reports: Reviewed and negative Immunocompromised: reports: Reviewed and negative PD PAST MEDICAL HISTORY - Past Medical History Cardiovascular: Atrial fibrillation Respiratory: None, Other Endocrine/Autoimmune: None GI: None : Frequency, Kidney stones HEENT: Macular degeneration Psych: None Musculoskeletal: None Derm: None - Past Surgical History Past Surgical History: Yes HEENT: Tonsil/Adenoidectomy Derm: Skin cancer surgery - Present Medications Home Medications: Ambulatory Orders Medication Instructions Recorded Confirmed Allopurinol [Zyloprim] 300 mg PO DAILY 08/07/20 08/30/20 dilTIAZem HCL [Diltiazem 24Hr ER 240 mg PO DAILY 08/07/20 08/30/20 (Xr)] Amox/Clav 875/125 [Augmentin] 1 each PO Q12H #20 tab 10/14/20 Cyclobenzaprine [Flexeril] 10 mg PO TID PRN #20 tab 10/14/20 HYDROcod/ACETAM 5/325 [[place] 5/325] 1 - 2 ea PO Q6H PRN #15 tab 10/14/20 - Allergies Allergies/Adverse Reactions: Allergies Allergy/AdvReac Type Severity Reaction Status Date / Time Sulfa (Sulfonamide Allergy Unknown Verified 10/14/20 17:17 Antibiotics) Iodinated Contrast Media AdvReac Hives Verified 10/14/20 17:17 [Iodinated Contrast Media - IV Dye] - Social History Does the pt smoke?: Yes Smoking Status: Current every day smoker Does the pt drink ETOH?: Yes Does the pt have substance abuse?: No - Immunizations Immunizations are current?: Yes - POLST Patient has POLST: No PD ED PE NORMAL - Vitals Vital signs reviewed: Yes - General General: Alert and oriented X 3, No acute distress - HEENT HEENT: Atraumatic, PERRL, EOMI, Moist mucous membranes - Neck Neck: Supple, no meningeal sign, No bony TTP - Cardiac Cardiac: RRR, No murmur, Strong equal pulses - Respiratory Respiratory: No respiratory distress, Clear bilaterally - Abdomen Abdomen: Soft, Non tender, Non distended - Back Back: No CVA TTP, No spinal TTP, Other (Tend over L SI joint.) - Derm Derm: Warm and dry - Extremities Extremities: No deformity - Neuro Neuro: Alert and oriented X 3 - Psych Psych: Normal mood, Normal affect Results - Vitals Vitals: Vital Signs - 24 hr 10/14/20 10/14/20 10/14/20 17:17 20:10 22:00 Temperature 38.2 C H Heart Rate 74 60 61 Respiratory 19 10 L 16 Rate Blood Pressure 136/81 H 121/76 118/73 O2 Saturation 98 95 95 10/14/20 23:32 Temperature 37.9 C Heart Rate 64 Respiratory 16 Rate Blood Pressure 115/72 O2 Saturation 96 Oxygen O2 Source Room air - Labs Labs: Laboratory Tests 10/14/20 10/14/20 10/14/20 18:07 18:07 19:00 WBC 18.8 H RBC 4.20 L Hgb 12.5 L Hct 38.2 L MCV 91.0 MCH 29.8 MCHC 32.7 RDW 16.6 H Plt Count 306 MPV 9.9 Neut # (Auto) 15.8 H Lymph # (Auto) 1.1 L [place] # (Auto) 1.7 H Eos # (Auto) 0.0 Baso # (Auto) 0.0 Absolute Nucleated RBC 0.00 Nucleated RBC % 0.0 Manual Slide Review Indicated WBC Morphology NORMAL APPEARANCE Platelet Estimate NORMAL (130-450,000) Platelet Morphology NORMAL APPEARANCE RBC Morph Micro Appear NORMAL APPEARANCE Sodium 135 Potassium 4.5 Chloride 96 L Carbon Dioxide 26 Anion Gap 13.0 BUN 35 H Creatinine 2.0 H Estimated GFR (MDRD) 32 L Glucose 127 H Calcium 9.4 Total Bilirubin 0.7 AST 25 ALT 43 Alkaline Phosphatase 135 H Total Protein 7.1 Albumin 3.3 Globulin 3.8 Albumin/Globulin Ratio 0.9 L Lipase 26 Urine Color YELLOW Urine Clarity HAZY Urine pH 6.0 Ur Specific [place] 1.025 Urine Protein 100 H Urine Glucose (UA) NEGATIVE Urine Ketones NEGATIVE Urine Occult Blood MODERATE H Urine Nitrite NEGATIVE Urine Bilirubin NEGATIVE Urine Urobilinogen 0.2 (NORMAL) Ur Leukocyte Esterase MODERATE H Urine RBC 11-25 H Urine WBC >25 H Ur Squamous Epith Cells RARE Squamous Amorphous Sediment Moderate Urine Bacteria Moderate H Ur Microscopic Review INDICATED Urine Culture Comments INDICATED PD MEDICAL DECISION MAKING - ED course Complexity details: reviewed old records, reviewed results, re-evaluated patient, considered differential, d/w patient ED course: The patient overall is well-appearing and I suspected a urinary tract infection as the cause for his fever. He was given Dilaudid and Toradol for pain and star phoebe on IV fluids, as his urine was quite dark yellow. Labs showed a white blood cell count of 18.8. The patient's BUN and creatinine were elevated, but were not above his baseline. At this point in time, the urinalysis is pending. The patient has been signed out to oncoming emergency physician Dr. Coley, pending urinalysis and final disposition. Departure - Departure Disposition: 01 Home, Self Care Clinical Impression: Urinary tract infection, Sciatica Condition: Stable Instructions: ED Sciatica, ED UTI Cystitis Male Follow-Up: West Galaviz MD [Primary Care Provider] - Prescriptions: Amox/Clav 875/125 [Augmentin] 1 each PO Q12H #20 tab Cyclobenzaprine [Flexeril] 10 mg PO TID PRN #20 tab PRN Reason: Spasms HYDROcod/ACETAM 5/325 [[place] 5/325] 1 - 2 ea PO Q6H PRN #15 tab PRN Reason: Pain Discharge Date/Time: 10/15/20 00:10
[2020-10-14] MEDS ORDERED: ACETAMINOPHEN 325 MG TABLET PO STA (19:06)
[2020-10-14 19:15] LABS: BILIRUBIN,URINE NEGATIVE (NEGATIVE); GLUCOSE, URINE (UA) NEGATIVE (NEGATIVE); KETONES,URINE (UA) NEGATIVE (NEGATIVE); LEUKOCYTE ESTERASE, URINE MODERATE (NEGATIVE); NITRITE,URINE NEGATIVE (NEGATIVE); OCCULT BLOOD,URINE MODERATE (NEGATIVE); PROTEIN,URINE 100 mg/dL (NEGATIVE); UROBILINOGEN,URINE 0.2 (NORMAL) E.U./dL (NORMAL)
[2020-10-14 19:17] LABS: CLARITY,URINE HAZY (CLEAR)
[2020-10-14 19:31] LABS: AMORPHOUS SEDIMENT,UR Moderate /LPF; BACTERIA,URINE Moderate /HPF (None Seen); SQUAMOUS EPITHELIAL CELL,UR RARE Squamous (<= Few)
[2020-10-14] MEDS ORDERED: levoFLOXacin 750 MG/150 ML 750 MG/150 ML BAG IV STA (19:35)
[2020-10-14] MEDS ORDERED: cefTRIAXone 1 GM in SODIUM CHLORIDE 0.9% MINIBAG 100 ML IV STA (19:57)
[2020-10-14] MEDS ORDERED: cefTRIAXone 1 GM VIAL ONE (20:15)
--- NOTE | 2020-10-14 20:16 | XRAY Report ---
PROCEDURE: Hip w/Pelvis 2-3V LT INDICATIONS: pain TECHNIQUE: AP pelvis with lateral view(s) of the bilateral hip(s). COMPARISON: None. FINDINGS: Bones: No fractures or dislocations. Pelvic ring appears intact. No suspicious bony lesions. Mild bilateral joint space narrowing. Soft tissues: The visualized bowel gas pattern is normal. No suspicious soft tissue calcifications. Prominent stool the colon. Clip in the right lower quadrant. IMPRESSION: No acute osseous abnormality. Prominent stool the colon. Reviewed by: Dylon Dawn MD on 10/14/2020 8:14 PM PST Approved by: Dylon Dawn MD on 10/14/2020 8:14 PM PST Station ID: [id number]
[2020-10-14] MEDS ORDERED: DEXAMETHASONE 10 MG/ML VIAL IVP STA (21:28)
--- NOTE | 2020-10-14 21:32 | ED Physician Documentation ---
History of Present Illness - Stated complaint Stated Complaint: HIP PX - Chief complaint Chief Complaint: Trauma Ext - History obtained from History obtained from: Patient - Additonal information Additional information: 80-year-old male appears to have developed sciatica after sitting in a poorly supporting easy chair to watch the Super Bowl. He yesterday got a suprapubic catheter replaced and today he has fever as well as this back pain and hip pain. He was evaluated by Dr. Canas and is found to have urinary tract infection and a recently re-placed suprapubic catheter. He has elevated WBC and >25wbc/hpf in the urine and a fever here in the ED to 38.2. PD PAST MEDICAL HISTORY - Past Medical History Cardiovascular: Atrial fibrillation Respiratory: None, Other Endocrine/Autoimmune: None GI: None : Frequency, Kidney stones HEENT: Macular degeneration Psych: None Musculoskeletal: None Derm: None - Past Surgical History Past Surgical History: Yes HEENT: Tonsil/Adenoidectomy Derm: Skin cancer surgery - Present Medications Home Medications: Ambulatory Orders Medication Instructions Recorded Confirmed Allopurinol [Zyloprim] 300 mg PO DAILY 08/07/20 08/30/20 dilTIAZem HCL [Diltiazem 24Hr ER 240 mg PO DAILY 08/07/20 08/30/20 (Xr)] Amox/Clav 875/125 [Augmentin] 1 each PO Q12H #20 tab 10/14/20 Cyclobenzaprine [Flexeril] 10 mg PO TID PRN #20 tab 10/14/20 HYDROcod/ACETAM 5/325 [[place] 5/325] 1 - 2 ea PO Q6H PRN #15 tab 10/14/20 - Allergies Allergies/Adverse Reactions: Allergies Allergy/AdvReac Type Severity Reaction Status Date / Time Sulfa (Sulfonamide Allergy Unknown Verified 10/14/20 17:17 Antibiotics) Iodinated Contrast Media AdvReac Hives Verified 10/14/20 17:17 [Iodinated Contrast Media - IV Dye] - Social History Does the pt smoke?: Yes Smoking Status: Current every day smoker Does the pt drink ETOH?: Yes Does the pt have substance abuse?: No - Immunizations Immunizations are current?: Yes - POLST Patient has POLST: No PD ED PE NORMAL - Vitals Vital signs reviewed: Yes (febrile and hypertensive ) - General General: Alert and oriented X 3, No acute distress, Well developed/nourished - HEENT HEENT: Atraumatic, PERRL, EOMI - Respiratory Respiratory: No respiratory distress - Derm Derm: Normal color, Warm and dry, No rash - Extremities Extremities: No deformity, No edema - Neuro Neuro: Alert and oriented X 3, associate director financial aid 2-12 intact, No motor deficit, No sensory deficit, Normal speech Eye Opening: Spontaneous Motor: Obeys Commands Verbal: Oriented GCS Score: 15 - Psych Psych: Normal mood, Normal affect Results - Vitals Vitals: Vital Signs - 24 hr 10/14/20 10/14/20 10/14/20 17:17 20:10 22:00 Temperature 38.2 C H Heart Rate 74 60 61 Respiratory 19 10 L 16 Rate Blood Pressure 136/81 H 121/76 118/73 O2 Saturation 98 95 95 Oxygen O2 Source Room air - Labs Labs: Laboratory Tests 10/14/20 10/14/20 10/14/20 18:07 18:07 19:00 WBC 18.8 H RBC 4.20 L Hgb 12.5 L Hct 38.2 L MCV 91.0 MCH 29.8 MCHC 32.7 RDW 16.6 H Plt Count 306 MPV 9.9 Neut # (Auto) 15.8 H Lymph # (Auto) 1.1 L [place] # (Auto) 1.7 H Eos # (Auto) 0.0 Baso # (Auto) 0.0 Absolute Nucleated RBC 0.00 Nucleated RBC % 0.0 Manual Slide Review Indicated WBC Morphology NORMAL APPEARANCE Platelet Estimate NORMAL (130-450,000) Platelet Morphology NORMAL APPEARANCE RBC Morph Micro Appear NORMAL APPEARANCE Sodium 135 Potassium 4.5 Chloride 96 L Carbon Dioxide 26 Anion Gap 13.0 BUN 35 H Creatinine 2.0 H Estimated GFR (MDRD) 32 L Glucose 127 H Calcium 9.4 Total Bilirubin 0.7 AST 25 ALT 43 Alkaline Phosphatase 135 H Total Protein 7.1 Albumin 3.3 Globulin 3.8 Albumin/Globulin Ratio 0.9 L Lipase 26 Urine Color YELLOW Urine Clarity HAZY Urine pH 6.0 Ur Specific [place] 1.025 Urine Protein 100 H Urine Glucose (UA) NEGATIVE Urine Ketones NEGATIVE Urine Occult Blood MODERATE H Urine Nitrite NEGATIVE Urine Bilirubin NEGATIVE Urine Urobilinogen 0.2 (NORMAL) Ur Leukocyte Esterase MODERATE H Urine RBC 11-25 H Urine WBC >25 H Ur Squamous Epith Cells RARE Squamous Amorphous Sediment Moderate Urine Bacteria Moderate H Ur Microscopic Review INDICATED Urine Culture Comments INDICATED PD MEDICAL DECISION MAKING - ED course Complexity details: reviewed results, re-evaluated patient, considered differential, d/w patient ED course: 80-year-old male with chief complaint of back pain appears to have sciatica on evaluation and he does have urinary tract infection he has a Aguilar catheter in place he has a suprapubic catheter in place and this was replaced yesterday. He has developed fever and is febrile here in the emergency department. His white blood cell count is elevated. 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 He is given a dose of IV Rocephin after he refuses Levaquin. We will place him on Augmentin and have him follow-up with his urologist regarding his urinary tract infection. He indicates that he has had urinary tract infection multiple times he has never had to be hospitalized for this he has had a lot of problems with his prostate and his bladder and catheterizations. He does not feel he needs to be in the hospital tonight other than it would be more convenient to have his pick him up in the morning. Departure - Departure Disposition: Home, Self Care Clinical Impression: Urinary tract infection Qualifiers: Urinary tract infection type: catheter-associated UTI Indwelling urinary catheter type: cystostomy catheter Encounter type: initial encounter Qualified Code(s): T83.510A - Infection and inflammatory reaction due to cystostomy catheter, initial encounter; N39.0 - Urinary tract infection, site not specified Sciatica Qualifiers: Laterality: left Qualified Code(s): M54.32 - Sciatica, left side Condition: Stable Instructions: ED Sciatica, ED UTI Cystitis Male Follow-Up: West Galaviz MD [Primary Care Provider] - Prescriptions: Amox/Clav 875/125 [Augmentin] 1 each PO Q12H #20 tab Cyclobenzaprine [Flexeril] 10 mg PO TID PRN #20 tab PRN Reason: Spasms HYDROcod/ACETAM 5/325 [[place] 5/325] 1 - 2 ea PO Q6H PRN #15 tab PRN Reason: Pain
[2020-10-14 23:33] VITALS: BP 115/72
== END 2020-10-15 00:10 | disposition home or self-care (01) ==
LOC: EDUNIT# → ED 17:07
DX: T83.510A Infection and inflammatory reaction due to cystostomy catheter, initial encounter (principal); Y84.6 Urinary catheterization as the cause of abnormal reaction of the patient, or of later complication, without mention of misadventure at the time of the procedure; M54.42 Lumbago with sciatica, left side; Z85.46 Personal history of malignant neoplasm of prostate; F17.200 Nicotine dependence, unspecified, uncomplicated
CPT/HCPCS: 36415; 73502; 80053; 81001; 83690; 85025; 87040; 87086; 96361; 96365; 96375; 99284; A9270; J1170; 81003; 87181

== ENCOUNTER 2021-01-22 11:00 | Outpatient (CLI) | payer MEDICARE, OTHER | END 2021-01-22 11:01 | disposition home or self-care (01) | LOC: LAB.S 11:00 | PROVIDERS: ATTEND Urology | DX: N39.0 Urinary tract infection, site not specified (principal); N21.0 Calculus in bladder | CPT/HCPCS: 87077; 87086; 87181 ==

== ENCOUNTER 2021-09-09 10:18 | Outpatient (CLI) | payer MEDICARE, OTHER | END 2021-09-09 10:19 | disposition home or self-care (01) | LOC: LAB.S 10:18 | PROVIDERS: ATTEND Specialist | DX: C61 Malignant neoplasm of prostate (principal) | CPT/HCPCS: 36415; 84153 ==

== ENCOUNTER 2022-09-07 10:07 | Outpatient (CLI) | payer MEDICARE, OTHER | END 2022-09-07 10:08 | disposition home or self-care (01) | LOC: LAB.S 10:07 | PROVIDERS: ATTEND Specialist | DX: C61 Malignant neoplasm of prostate (principal) | CPT/HCPCS: 36415; 84153 ==

== ENCOUNTER 2023-09-06 10:41 | Outpatient (CLI) | payer MEDICARE, OTHER | END 2023-09-06 10:42 | disposition home or self-care (01) | LOC: LAB.S 10:41 | PROVIDERS: ATTEND Specialist | DX: C61 Malignant neoplasm of prostate (principal) | CPT/HCPCS: 36415; 84153 ==